=== PATIENT | male | born 1965 | race Caucasian/White ===

== ENCOUNTER 2022-11-23 10:12 | Emergency (ER) | payer OTHER, SELFPAY ==
[2022-11-23 10:13] VITALS: BP 149/69; PULSE 75; RESP 18; TEMP 36.2; O2SAT 99
--- NOTE | 2022-11-23 10:44 | CT_ITS ---
STUDY: CT BRAIN WITHOUT CONTRAST REASON FOR EXAM: Male, 57 years old. Acute vertigo, hearing changes, on coumadin RADIATION DOSAGE (If Supplied By Facility): CTDIvol = ( 44.99 ) mGy, DLP = ( 829.85 ) mGycm TECHNIQUE: Transaxial CT imaging of the brain was performed without administration of intravenous contrast material. Individualized dose optimization techniques were used for this CT. COMPARISON: No relevant priors. FINDINGS: Normal soft tissue structures. Normal calvarium. Normal size ventricles and extra-axial spaces for the patient''s age. Normal white matter tracts of the cerebral hemispheres. Normal basal ganglia and thalami. Normal brainstem. Normal cerebellum. There is no intracranial hemorrhage. There are no findings of an acute ischemic infarction. Normal visualized paranasal sinuses. CT/Brain/Head without Contrast IMPRESSION: Normal unenhanced CT scan of the brain. Electronically Signed: Josse Quick MD at 11:55 EDT ,
--- NOTE | 2022-11-23 10:50 | EX.ED.DYSGE1 ---
HPI History of Present Illness Chief Complaint: Dizziness Informant: patient Narrative Narrative: Patient is a 57-year-old male with history of [id number] diabetes mellitus, atrial fibrillation (on Coumadin), hypertension and combined systolic and diastolic heart failure presenting with hearing changes and vertigo. Patient actually went to [facility] where he had normal ear exam and was sent to the emergency room. Patient states around 230 he woke up to use the restroom and noticed he could not really hear out of his right ear. He states his left ear felt crackly. He went back to bed and around 4 AM got up to use restroom again. He laid down on his right side all of a sudden felt hot, sweating and when he opened his eyes the room seemed like it was spinning. The symptoms have persisted throughout the day today. He notes his symptoms are worse when he moves his head. Patient has never had anything like this before. He is on Coumadin and states he had an INR check this weekend (1 to 2 days ago) where his INR was 1.9. Denies any head injury or falls. Denies associated numbness or tingling. Does feel slightly off balance with walking. No other complaints or concerns at this time. [facility] Medical History Abdominal bloating Atrial fibrillation Congestive heart failure Constipation, unspecified Diarrhea HLD (hyperlipidemia) HTN (hypertension) Other diseases of pharynx, not elsewhere classified Sleep apnea SOB (shortness of breath) Type 2 diabetes mellitus Home Medications Lactobacillus acidophilus 20 billion cell capsule 10 mg PO DAILY 04/06/22 [History Last Taken Unknown] aspirin 81 mg tablet,delayed release (Adult Aspirin Regimen) 81 mg PO DAILY 04/06/22 [History Last Taken Unknown] cholecalciferol (vitamin D3) 1,250 mcg (50,000 unit) capsule 1,250 mcg PO QWEEK 04/06/22 [History Last Taken Unknown] digoxin 250 mcg (0.25 mg) tablet 375 mcg PO DAILY 04/06/22 [History Last Taken Unknown] furosemide 80 mg tablet 80 mg PO BID 04/06/22 [History Last Taken Unknown] glipizide 10 mg tablet 10 mg PO BID 04/06/22 [History Last Taken Unknown] metoprolol tartrate 100 mg tablet 100 mg PO DAILY 04/06/22 [History Last Taken Unknown] nitroglycerin 0.4 mg sublingual tablet 0.4 mg sublingual ONCE 04/06/22 [History Last Taken Unknown] potassium chloride 20 mEq tablet,extended release(part/cryst) (Klor-Con M) 20 meq PO DAILY 04/06/22 [History Last Taken Unknown] quinapril 20 mg tablet 20 mg PO DAILY 04/06/22 [History Last Taken Unknown] rosuvastatin 10 mg tablet 10 mg PO DAILY 04/06/22 [History Last Taken Unknown] sitagliptin phosphate 50 mg-metformin 1,000 mg tablet (Janumet) 1 tab PO BID 04/06/22 [History Last Taken Unknown] spironolactone 25 mg tablet 25 mg PO DAILY 04/06/22 [History Last Taken Unknown] warfarin 10 mg tablet 10 mg PO QMWF 04/06/22 [History Last Taken Unknown] warfarin 5 mg tablet 5 mg PO Q OTHER DAY 04/06/22 [History Last Taken Unknown] diazepam 5 mg tablet (Valium) 5 mg PO TID PRN vertigo #10 tabs 11/23/22 [Rx Last Taken Unknown] fluticasone propionate 50 mcg/actuation nasal spray,suspension (Flonase Allergy Relief) 1 spray intranasal DAILY 14 days #16 grams 11/23/22 [Rx Last Taken Unknown] meclizine 25 mg tablet 25 mg PO 4X/DAY PRN PRN Dizziness #20 tabs 11/23/22 [Rx Last Taken Unknown] prednisone 10 mg tablet 30 mg (3 x 10 mg) PO DAILY 5 days #15 tabs 11/23/22 [Rx Last Taken Unknown] Allergy/AdvReac Type Severity Reaction Status Date / Time No Known Allergies Allergy Unverified 04/06/22 08:03 Family History Mother Diabetes Surgical History H/O bilateral cataract extraction Social History Smoking Status: Former smoker quit date: 01/15/99 alcohol intake: never substance use type: does not use ROS ROS ED Constitutional Constitutional ED: Denies chills or fever(s) Eyes Eyes: Denies blurry vision or change in vision ENT ENT ED: Reports other Details: hearing changes ; Denies ear pain, rhinorrhea or sore throat Cardiovascular Cardiovascular: Denies chest pain Respiratory/Chest Respiratory/Chest: Denies cough Gastrointestinal Gastrointestinal: Reports nausea; Denies abdominal pain or vomiting Musculoskeletal Musculoskeletal: Denies arthralgias or myalgias Integumentary Denies rash Neurologic Neurologic: Reports other Details: + vertigo ; Denies headache(s), paresthesias or weakness Hematologic/Lymphatic Hematologic/Lymphatic: Reports easy bleeding and easy bruising EXAM Physical Exam Const Vital Signs: 11/23/22 10:13 11/23/22 11:03 11/23/22 13:26 Temperature 97.2 F L Temperature Source Temporal Pulse Rate 75 Respiratory Rate 18 17 Respiratory Effort Normal Non-Labored Respiratory Pattern Normal Blood Pressure 149/69 H 125/54 H Blood Pressure Mean 95 77 Pulse Ox 99 Oxygen Delivery Method Room Air Room Air 11/23/22 13:26 Temperature Temperature Source Pulse Rate Respiratory Rate 17 Respiratory Effort Respiratory Pattern Blood Pressure 125/54 H Blood Pressure Mean Pulse Ox Oxygen Delivery Method Positive well nourished, well developed and obese General Appearance ED: well developed and NAD Nutritional Appearance: obese HEENT Reports TM's clear and moist mucous membranes Tympanic Membrane ED: Yes TM's clear Eyes PERRL and EOMs intact bilaterally Eyes Narrative: No nystagmus with range of motion of the eyes however on Gar[place]-Hallpike maneuver patient has significant nystagmus with leftward and slight rotary movements bilaterally. Patient is quite symptomatic with this. Neck supple and no JVD Chest Wall inspection of chest normal and palpation of chest normal Resp normal respiratory effort and clear to auscultation bilaterally Cardio regular rate, regular rhythm and no murmurs GI normal to inspection, nondistended, normoactive bowel sounds and non-tender Extremity normal to inspection Extremity Narrative: Brace on right lower foot General Extremety ED: Negative for edema or tenderness General Extremity: Negative for edema Neuro oriented x3, CN's II-XII intact bilaterally and no sensory deficits noted Neuro Narrative: NIH equals 0. Normal [id number] and [id number]. No truncal ataxia. Sensorium / Orientation: alert Motor Exam: strength 5/5 throughout Skin no rashes or lesions noted MDM MDM MDM Narrative Medical decision making narrative: Patient presents with acute onset of vertigo and hearing loss. It seems to be coming from his right ear. He has a positive [place]-Hallpike maneuver on the right with reproduction of his nystagmus and symptoms. He does not have any truncal ataxia, abnormal coordination of his upper extremity or lower extremity and I do not think this is a central process. He is on Coumadin so we will obtain a CT of the brain to rule out any hemorrhagic process however again I really think this is peripheral. I suspect patient has labyrinthitis given the combination of hearing changes and acute vertigo. Patient is given a dose of oral Ativan with improvement of his symptoms. He is hemodynamically stable in the ER. He had an INR checked 2 days ago which was mildly subtherapeutic and I do not think this requires to be rechecked emergently today. He has no other symptoms and I do not think this is any type of referred cardiac symptoms. I did discuss the case with ENT on-call, Dr. Reed, who recommends 30 mg burst of prednisone daily given his diabetes and outpatient follow-up in his office with hearing test as well. Patient agreeable this plan of care. Patient be discharged home on Flonase and as needed meclizine/Valium. Is given return precautions the emergency room. Patient and verbalized agreement understand this plan. Discharged home in stable and improved condition. Radiography Diagnostic Testing: Clinical Impression(s) from Imaging Studies Brain CT 11/23/22 10:44 IMPRESSION: Normal unenhanced CT scan of the brain. Electronically Signed: Josse Quick MD at 11:55 EDT , Discharge Plan Triage Chief Complaint: Dizziness Other Complaint: Nausea/Vomiting ED Provider: Teri Bustillo Dx/Rx/DC Orders Clinical Impression: Acute labyrinthitis Instructions: ED Labyrinthitis Prescriptions: New fluticasone propionate [Flonase Allergy Relief] 50 mcg/actuation spray,suspension 1 spray intranasal DAILY 14 Days Qty: 16 0RF Rx Instructions: administer into each nostril prednisone 10 mg tablet 30 mg PO DAILY 5 Days Qty: 15 0RF diazepam [Valium] 5 mg tablet 5 mg PO TID PRN (Reason: vertigo) Qty: 10 0RF meclizine 25 mg tablet 25 mg PO 4X/DAY PRN PRN (Reason: Dizziness) Qty: 20 0RF No Action spironolactone 25 mg tablet 25 mg PO DAILY quinapril 20 mg tablet 20 mg PO DAILY metoprolol tartrate 100 mg tablet 100 mg PO DAILY glipizide 10 mg tablet 10 mg PO BID digoxin 250 mcg (0.25 mg) tablet 375 mcg PO DAILY rosuvastatin 10 mg tablet 10 mg PO DAILY potassium chloride [Klor-Con M20] 20 mEq tablet,ER particles/crystals 20 meq PO DAILY Janumet 50-1,000 mg tablet 1 tab PO BID warfarin 10 mg tablet 10 mg PO QMWF warfarin 5 mg tablet 5 mg PO Q OTHER DAY Rx Instructions: on odd numbered days cholecalciferol (vitamin D3) 1,250 mcg (50,000 unit) capsule 1,250 mcg PO QWEEK Lactobacillus acidophilus 20 billion cell capsule 10 mg PO DAILY nitroglycerin 0.4 mg tablet, sublingual 0.4 mg sublingual ONCE Rx Instructions: as a single dose; administer 5-10 minutes before situation known to precipitate angina attack aspirin [Adult Aspirin Regimen] 81 mg tablet,delayed release (DR/EC) 81 mg PO DAILY furosemide 80 mg tablet 80 mg PO BID Primary Care Provider: Flo Kingston Referrals: Phil Dumont MD [Med Staff - Active Staff] - As soon as possible Flo Kingston MD [Primary Care Provider] - Activity Restrictions/Additional Instructions: Please follow-up with ear nose and throat as soon as possible. Call them and let them know that Dr. Casillas recommended coming in for hearing test soon as possible. Please contact your PCP for further recommendations of your Coumadin level. Return to the ER if you develop any numbness, vision changes, weakness or your symptoms are too severe to handle at home. Disposition Disposition: Home, Self Care Discharge Date/Time: 11/23/22 13:27
[2022-11-23 11:03] VITALS: BMI 39.0
[2022-11-23] MEDS: LORazepam 1 MG Tablet PO (11:09)
[2022-11-23 13:26] VITALS: BP 125/54; RESP 17
== END 2022-11-23 13:27 | disposition home or self-care (01) ==
PROVIDERS: Emergency Provider Emergency Medicine; PCP Family Medicine; Visit Provider Emergency Medicine
DX: H83.01 Labyrinthitis, right ear (principal); I11.0 Hypertensive heart disease with heart failure; I50.42 Chronic combined systolic (congestive) and diastolic (congestive) heart failure; I48.91 Unspecified atrial fibrillation; E11.9 Type 2 diabetes mellitus without complications; E78.5 Hyperlipidemia, unspecified; Z79.01 Long term (current) use of anticoagulants; Z79.82 Long term (current) use of aspirin; Z79.84 Long term (current) use of oral hypoglycemic drugs; Z79.899 Other long term (current) drug therapy; Z87.891 Personal history of nicotine dependence
CPT/HCPCS: 70450; 99283